=== PATIENT | female | born 1985 | race Caucasian/White ===

== ENCOUNTER 2016-03-14 11:13 | Outpatient (CLI) | payer OTHER | END 2016-03-14 11:14 | disposition home or self-care (01) | DX: Z36 Encounter for antenatal screening of mother (principal) ==

== ENCOUNTER 2016-05-02 10:30 | Outpatient (CLI) | payer OTHER | END 2016-05-02 10:31 | disposition home or self-care (01) | DX: Z13.29 Encounter for screening for other suspected endocrine disorder (principal); R06.00 Dyspnea, unspecified ==

== ENCOUNTER 2016-05-06 12:40 | Outpatient (CLI) | payer OTHER | END 2016-05-06 12:41 | disposition home or self-care (01) | DX: R00.2 Palpitations (principal); R06.00 Dyspnea, unspecified ==

== ENCOUNTER 2016-05-31 08:00 | Outpatient (CLI) | payer OTHER | END 2016-05-31 08:01 | disposition home or self-care (01) | DX: Z36 Encounter for antenatal screening of mother (principal) ==

== ENCOUNTER 2016-06-13 16:41 | Outpatient (CLI) | payer OTHER | END 2016-06-13 17:45 | disposition home or self-care (01) | DX: O10.913 Unspecified pre-existing hypertension complicating pregnancy, third trimester (principal); Z3A.38 38 weeks gestation of pregnancy ==

== ENCOUNTER 2016-06-15 10:08 | Outpatient (CLI) | payer OTHER | END 2016-06-15 12:25 | disposition home or self-care (01) | DX: O13.3 Gestational [pregnancy-induced] hypertension without significant proteinuria, third trimester (principal); Z3A.38 38 weeks gestation of pregnancy ==

== ENCOUNTER 2016-06-17 08:39 | Outpatient (CLI) | payer OTHER | END 2016-06-17 09:20 | disposition home or self-care (01) | DX: O13.3 Gestational [pregnancy-induced] hypertension without significant proteinuria, third trimester (principal); Z3A.39 39 weeks gestation of pregnancy ==

== ENCOUNTER 2016-06-20 14:30 | Outpatient (CLI) | payer OTHER | END 2016-06-20 14:31 | disposition home or self-care (01) | DX: Z30.2 Encounter for sterilization (principal); O34.219 Maternal care for unspecified type scar from previous cesarean delivery ==

== ENCOUNTER 2016-06-22 04:50 | Inpatient (IN) | payer OTHER ==
[~2016-06-22 04:50] MED LIST: SODIUM CHLORIDE FLUSH 0.9% 10 ML SYRINGE IVP ONE
[2016-06-22] MEDS ORDERED: LACTATED RINGERS 1,000 ML IV ONE ×4 (05:29→08:26)
[2016-06-22] MEDS ORDERED: ceFAZolin 2 GM/50 ML 50 ML IV SCH (05:45)
[2016-06-22] MEDS ORDERED: LACTATED RINGERS 1,500 ML IV SCH (06:00)
[2016-06-22] MEDS ORDERED: LACTATED RINGERS 1,000 ML IV SCH ×2 (06:00→09:00)
[2016-06-22] MEDS ORDERED: CITRIC ACID/SODIUM CITRATE 15 ML UDC PO SCH (06:00)
[2016-06-22] MEDS ORDERED: ONDANSETRON 4 MG/2 ML VIAL IVP PRN (06:34)
[2016-06-22] MEDS ORDERED: OXYTOCIN/LACTATED RINGERS 250 ML IV ONE ×3 (08:46→17:16)
[2016-06-22] MEDS ORDERED: NALBUPHINE 20 MG/ML AMP IVP PRN (14:00)
[2016-06-22] MEDS ORDERED: diphenhydrAMINE INJ 50 MG/ML VIAL IVP PRN (14:00)
[2016-06-22] MEDS ORDERED: METOCLOPRAMIDE 10 MG/2 ML VIAL IVP PRN (14:00)
[2016-06-22] MEDS ORDERED: MORPHINE 2 MG/ML SYRINGE IVP PRN (14:00)
[2016-06-22] MEDS ORDERED: diphenhydrAMINE 25 MG CAPSULE PO PRN (14:00)
[2016-06-22] MEDS ORDERED: SODIUM CHLORIDE FLUSH 0.9% 10 ML SYRINGE IVP ONE (14:04)
[2016-06-22] MEDS: IBUPROFEN 600 MG TABLET PO SCH ×2 (14:17→20:20)
[2016-06-22] MEDS: SIMETHICONE CHEW 80 MG TABLET PO SCH ×2 (14:17→22:27)
[2016-06-23] MEDS: IBUPROFEN 600 MG TABLET PO SCH ×5 (02:14→22:09)
[2016-06-23] MEDS: oxyCOD/ACETAMIN 5 MG/325 MG TABLET PO PRN ×5 (03:08→22:25)
[2016-06-23] MEDS: SIMETHICONE CHEW 80 MG TABLET PO SCH ×3 (06:01→22:08)
[2016-06-23] MEDS: DOCUSATE SODIUM 100 MG CAPSULE PO SCH (12:01)
[2016-06-23] MEDS ORDERED: FERROUS SULFATE 325 MG TABLET PO SCH (21:00)
[2016-06-24] MEDS: IBUPROFEN 600 MG TABLET PO SCH ×4 (04:35→21:16)
[2016-06-24] MEDS: oxyCOD/ACETAMIN 5 MG/325 MG TABLET PO PRN ×3 (04:36→19:48)
[2016-06-24] MEDS ORDERED: FERRIC GLUCONATE 125 MG in SODIUM CHLORIDE 0.9% 100ML 100 ML IV ONE (10:00)
[2016-06-24] MEDS: DOCUSATE SODIUM 100 MG CAPSULE PO SCH (12:49)
[2016-06-24] MEDS: SIMETHICONE CHEW 80 MG TABLET PO SCH ×3 (12:50→21:16)
[2016-06-24] MEDS: SODIUM CHLORIDE FLUSH 0.9% 10 ML SYRINGE IVP ONE ×2 (15:52→16:54)
[2016-06-25] MEDS ORDERED: SODIUM CHLORIDE FLUSH 0.9% 10 ML SYRINGE IVP ONE (02:25)
[2016-06-25] MEDS: IBUPROFEN 600 MG TABLET PO SCH ×2 (02:27→08:32)
[2016-06-25] MEDS: SIMETHICONE CHEW 80 MG TABLET PO SCH (05:47)
[2016-06-25] MEDS: DOCUSATE SODIUM 100 MG CAPSULE PO SCH (08:32)
== END 2016-06-25 13:40 | disposition home or self-care (01) | DRG 765 ==
PROC: 10D00Z1 Extraction of Products of Conception, Low, Open Approach (ICD-10-PCS; principal; 2016-06-22 07:30)
PROC: 0UB70ZZ Excision of Bilateral Fallopian Tubes, Open Approach (ICD-10-PCS; principal; 2016-06-22 07:30)
DX: O34.211 Maternal care for low transverse scar from previous cesarean delivery (principal); O13.3 Gestational [pregnancy-induced] hypertension without significant proteinuria, third trimester; N85.8 Other specified noninflammatory disorders of uterus; O90.81 Anemia of the puerperium; D64.9 Anemia, unspecified; O77.0 Labor and delivery complicated by meconium in amniotic fluid; Z37.0 Single live birth; Z3A.39 39 weeks gestation of pregnancy; Z30.2 Encounter for sterilization; Z90.5 Acquired absence of kidney

== ENCOUNTER 2016-09-09 14:53 | Emergency (ER) | payer OTHER ==
--- NOTE | 2016-09-09 15:52 | ED Physician Documentation ---
PD HPI ABD PAIN - Stated complaint Stated Complaint: VAG BLEEDING - Chief complaint Chief Complaint: Abd Pain - History obtained from History obtained from: Patient - History of Present Illness Timing - onset: Other (30-year-old woman who had tubal ligation after a couple of months ago. This is her second menses since then and it has been quite heavy with clots and heavy pad use for the last 6 days. 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 - Present Medications Home Medications: Ambulatory Orders Medication Instructions Recorded Confirmed Escitalopram Oxalate [Lexapro] 20 mg PO 09/25/12 09/25/12 Zolpidem Tartrate [Ambien] 5 mg PO 09/25/12 09/25/12 Ibuprofen [Motrin] 600 mg PO Q6H PRN #30 tab 06/25/16 oxyCODONE/ACET 5/325 [Percocet 5 2 each PO Q4-6H #20 tablet 06/25/16 mg/325 mg] Norgestrel-Ethinyl Estradiol 1 each PO TID #1 packet 09/09/16 [Low-Ogestrel] - Allergies Allergies/Adverse Reactions: Allergies Allergy/AdvReac Type Severity Reaction Status Date / Time No Known Drug Allergies Allergy Verified 06/15/16 11:30 - Social History Smoking Status: Never smoker PD ED PE NORMAL - Vitals Vital signs reviewed: Yes - General General: Alert and oriented X 3, No acute distress - Abdomen Abdomen: Soft, Non tender - Derm Derm: Normal color, Warm and dry - Extremities Extremities: No edema, No calf tenderness / cord - Neuro Neuro: Alert and oriented X 3 - Psych Psych: Normal mood, Normal affect Results - Vitals Vitals: Vital Signs - 24 hr 09/09/16 15:24 Temperature 36.5 C Heart Rate 77 Respiratory 17 Rate Blood Pressure 154/97 H O2 Saturation 100 Oxygen O2 Source Room air - Labs Labs: Laboratory Tests 09/09/16 09/09/16 09/09/16 16:00 16:15 16:15 WBC 8.3 RBC 4.46 Hgb 11.3 L Hct 36.3 L MCV 81.3 MCH 25.3 L MCHC 31.1 L RDW 16.4 H Plt Count 265 MPV 8.2 Neut # 5.2 Lymph # 2.3 [place] # 0.5 Eos # 0.2 Baso # 0.1 Absolute Nucleated RBC 0.00 Nucleated RBCs 0.0 Sodium 138 Potassium 3.9 Chloride 103 Carbon Dioxide 28 Anion Gap 7.0 BUN 19 Creatinine 0.8 Estimated GFR (MDRD) 85 L Glucose 88 Calcium 9.1 Ur Specific [place] 1.010 Urine HCG, Qual NEGATIVE PD MEDICAL DECISION MAKING - ED course ED course: Consulted Dr. Horner, on-call for Dr. Dumont who recommended control as written. Departure - Departure Disposition: Home, Self Care Clinical Impression: Menorrhagia Qualifiers: Menorrahagia type: with regular cycle Qualified Code(s): N92.0 - Excessive and frequent menstruation with regular cycle Condition: Good Record reviewed to determine appropriate education?: Yes Instructions: ED Bleed Irregular Vaginal Follow-Up: Angelo Dumont MD [Provider Admit Priv/Credential] - Within 1 week Prescriptions: Norgestrel-Ethinyl Estradiol [Low-Ogestrel] 1 each PO TID #1 packet Comments: Your blood pressure was elevated today on check into the emergency department. This does not mean that you have hypertension, it is a common phenomenon to come to the emergency department and have elevated blood pressure. I recommend that she see her primary care physician within the week to have it rechecked when you are feeling better.
[2016-09-09 16:30] LABS: BASOPHILS # (AUTO) 0.1 10^3/uL (0.0-0.1); BASOPHILS % (AUTO) 0.6 %; EOSINOPHILS # (AUTO) 0.2 10^3/uL (0.0-0.7); EOSINOPHILS % (AUTO) 2.6 %; HCT - HEMATOCRIT 36.3 % (37.0-47.0); HGB - HEMOGLOBIN 11.3 g/dL (12.0-16.0); LYMPHOCYTES # (AUTO) 2.3 10^3/uL (1.5-3.5); LYMPHOCYTES % (AUTO) 28.1 %; MEAN CORPUSCULAR HEMOGLOBIN 25.3 pg (27.0-31.0); MEAN CORPUSCULAR HGB CONC 31.1 g/dL (32.0-36.0); MEAN CORPUSCULAR VOLUME 81.3 fL (81.0-99.0); MEAN PLATELET VOLUME 8.2 fL (7.9-10.8); MONOCYTES # (AUTO) 0.5 10^3/uL (0.0-1.0); NEUTROPHILS # (AUTO) 5.2 10^3/uL (1.5-6.6); NEUTROPHILS % (AUTO) 62.7 %; RED BLOOD COUNT 4.46 10^6/uL (4.20-5.40); RED CELL DISTRIBUTION WIDTH 16.4 % (12.0-15.0); UNCORRECTED WHITE BLOOD COUNT 8.3 x10^3/uL; WHITE BLOOD COUNT 8.3 x10^3/uL (4.8-10.8)
[2016-09-09 16:39] LABS: CALCIUM 9.1 mg/dL (8.5-10.3); CREATININE 0.8 mg/dL (0.4-1.0); POTASSIUM 3.9 mmol/L (3.5-5.0)
[2016-09-09 16:56] LABS: HCG UR QUAL NEGATIVE
[2016-09-09 17:28] VITALS: BP 128/93
== END 2016-09-09 17:33 | disposition home or self-care (01) ==
LOC: ED 14:53
DX: N92.0 Excessive and frequent menstruation with regular cycle (principal); R03.0 Elevated blood-pressure reading, without diagnosis of hypertension
CPT/HCPCS: 36415; 80048; 81025; 85025; 86850; 86900; 86901; 99283

== ENCOUNTER 2017-04-25 09:41 | Day surgery (SDC) | payer OTHER ==
[2017-04-25] MEDS ORDERED: SODIUM CHLORIDE 0.9% 1,000 ML IV ONE (10:07)
[2017-04-25] MEDS ORDERED: ACETAMINOPHEN 1,000 MG/100 ML 100 ML IV STA ×2 (10:07→17:43)
--- NOTE | 2017-04-25 10:13 | ED Physician Documentation ---
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 - Present Medications Home Medications: Ambulatory Orders Medication Instructions Recorded Confirmed Melatonin 5 mg PO QPM PRN 04/25/17 04/25/17 Multivitamin [Theragran] 1 tab PO DAILY 04/25/17 04/25/17 Zolpidem Tartrate [Ambien] 10 mg PO QPM PRN 04/25/17 04/25/17 - Allergies Allergies/Adverse Reactions: Allergies Allergy/AdvReac Type Severity Reaction Status Date / Time No Known Drug Allergies Allergy Verified 04/25/17 09:48 - Social History Smoking Status: Never smoker PD ED PE NORMAL - Vitals Vital signs reviewed: Yes - Neck Neck: Supple, no meningeal sign - Cardiac Cardiac: RRR - Respiratory Respiratory: No respiratory distress, Clear bilaterally - Abdomen Abdomen: Soft, Other (TTP RUQ and RLQ both s peritoneal signs) - Derm Derm: Normal color - Extremities Extremities: No deformity - Neuro Neuro: Alert and oriented X 3 Results - Vitals Vitals: Vital Signs - 24 hr 04/25/17 04/25/17 04/25/17 09:44 12:26 15:13 Temperature 36.9 C Heart Rate 103 H 101 H 98 Respiratory 16 16 12 Rate Blood Pressure 148/91 H 127/79 125/84 H O2 Saturation 100 99 100 Oxygen O2 Source Room air - Labs Labs: Laboratory Tests 04/25/17 04/25/17 04/25/17 10:00 10:00 13:00 WBC 15.5 H RBC 4.66 Hgb 11.4 L Hct 35.7 L MCV 76.5 L MCH 24.4 L MCHC 31.9 L RDW 15.8 H Plt Count 278 MPV 9.1 Neut # 12.1 H Lymph # 2.3 [place] # 0.7 Eos # 0.3 Baso # 0.1 Absolute Nucleated RBC 0.00 Nucleated RBC % 0.0 Sodium 136 Potassium 3.4 L Chloride 102 Carbon Dioxide 22 Anion Gap 12.0 BUN 14 Creatinine 0.8 Estimated GFR (MDRD) 85 L Glucose 87 Calcium 9.2 Total Bilirubin 0.4 AST 27 ALT 20 Alkaline Phosphatase 49 Total Protein 7.8 Albumin 4.2 Globulin 3.6 Albumin/Globulin Ratio 1.2 Lipase 19 L Urine Color YELLOW Urine Clarity CLEAR Urine pH 6.0 Ur Specific [place] 1.015 Urine Protein NEGATIVE Urine Glucose (UA) NEGATIVE Urine Ketones 40 H Urine Occult Blood NEGATIVE Urine Nitrite NEGATIVE Urine Bilirubin NEGATIVE Urine Urobilinogen 0.2 (NORMAL) Ur Leukocyte Esterase NEGATIVE Ur Microscopic Review NOT INDICATED Urine Culture Comments NOT INDICATED Urine HCG, Qual 04/25/17 13:00 WBC RBC Hgb Hct MCV MCH MCHC RDW Plt Count MPV Neut # Lymph # [place] # Eos # Baso # Absolute Nucleated RBC Nucleated RBC % Sodium Potassium Chloride Carbon Dioxide Anion Gap BUN Creatinine Estimated GFR (MDRD) Glucose Calcium Total Bilirubin AST ALT Alkaline Phosphatase Total Protein Albumin Globulin Albumin/Globulin Ratio Lipase Urine Color Urine Clarity Urine pH Ur Specific [place] 1.015 Urine Protein Urine Glucose (UA) Urine Ketones Urine Occult Blood Urine Nitrite Urine Bilirubin Urine Urobilinogen Ur Leukocyte Esterase Ur Microscopic Review Urine Culture Comments Urine HCG, Qual NEGATIVE - Rads (name of study) abd sono Radiology: See rad report (nl GB, non vis appendix but no secondary signs of appendicitis) pelvic sono Radiology: See rad report (normal no torsion) CT AP Radiology: See rad report (early appendicitis, diverticulosis) PD MEDICAL DECISION MAKING - ED course ED course: started with sono hoping to avoid radiation of CT GB kidney ovary all fine but elev WBC and appy not seen on sono and on serial exams show pain localized to rlq - still no rebound or guarding +/- rovsing will need CT CT does show acute appy spoke with surgeon Dr Charlton at 540PM jim bruno Departure - Departure Disposition: ED Transfer to [facility] Clinical Impression: Appendicitis Qualifiers: Appendicitis type: acute appendicitis Acute appendicitis type: with localized peritonitis Qualified Code(s): K35.3 - Acute appendicitis with localized peritonitis Condition: Good
[2017-04-25 10:27] LABS: BASOPHILS # (AUTO) 0.1 10^3/uL (0.0-0.1); BASOPHILS % (AUTO) 0.6 %; EOSINOPHILS # (AUTO) 0.3 10^3/uL (0.0-0.7); HGB - HEMOGLOBIN 11.4 g/dL (12.0-16.0); LYMPHOCYTES # (AUTO) 2.3 10^3/uL (1.5-3.5); MEAN CORPUSCULAR HEMOGLOBIN 24.4 pg (27.0-31.0); MEAN CORPUSCULAR HGB CONC 31.9 g/dL (32.0-36.0); MEAN CORPUSCULAR VOLUME 76.5 fL (81.0-99.0); MEAN PLATELET VOLUME 9.1 fL (7.9-10.8); MONOCYTES # (AUTO) 0.7 10^3/uL (0.0-1.0); MONOCYTES % (AUTO) 4.5 %; NEUTROPHILS # (AUTO) 12.1 10^3/uL (1.5-6.6); NEUTROPHILS % (AUTO) 77.9 %; PLT - PLATELET COUNT 278 10^3/uL (130-450); RED BLOOD COUNT 4.66 10^6/uL (4.20-5.40); RED CELL DISTRIBUTION WIDTH 15.8 % (12.0-15.0); WHITE BLOOD COUNT 15.5 x10^3/uL (4.8-10.8)
[2017-04-25 10:42] LABS: ALBUMIN 4.2 g/dL (3.2-5.5); ALBUMIN/GLOBULIN RATIO 1.2 (1.0-2.2); BILIRUBIN,TOTAL 0.4 mg/dL (0.2-1.0); CALCIUM 9.2 mg/dL (8.5-10.3); CREATININE 0.8 mg/dL (0.4-1.0); TOTAL PROTEIN 7.8 g/dL (6.7-8.2)
[2017-04-25 13:10] LABS: BILIRUBIN,URINE NEGATIVE (NEGATIVE); GLUCOSE, URINE (UA) NEGATIVE (NEGATIVE); KETONES,URINE (UA) 40 mg/dL (NEGATIVE); LEUKOCYTE ESTERASE, URINE NEGATIVE (NEGATIVE); NITRITE,URINE NEGATIVE (NEGATIVE); OCCULT BLOOD,URINE NEGATIVE (NEGATIVE); PROTEIN,URINE NEGATIVE (NEGATIVE); UROBILINOGEN,URINE 0.2 (NORMAL) E.U./dL (NORMAL)
[2017-04-25 13:11] LABS: CLARITY,URINE CLEAR (CLEAR)
[2017-04-25 13:13] LABS: HCG UR QUAL NEGATIVE
[2017-04-25] MEDS ORDERED: IOPAMIDOL-300 50 ML VIAL ONE (15:09)
[2017-04-25] MEDS ORDERED: IOPAMIDOL-300 50 ML VIAL PO ONE (15:39)
--- NOTE | 2017-04-25 16:51 | Ultrasound Report ---
RIGHT UPPER QUADRANT ULTRASOUND: 04/25/2017 CLINICAL INDICATION: Right-sided pain. TECHNIQUE: Real-time scanning was performed with sales representative printing paper static images obtained. FINDINGS: Ultrasound of the right upper and lower quadrants was performed. The liver measures 15.5 cm. Hepatic echogenicity is normal. No intrahepatic biliary dilatation or focal parenchymal lesion is present. The common bile duct measures 6 mm. The gallbladder is normal. The right kidney measures 12.8 cm, and demonstrates no hydronephrosis. Scanning of the right lower quadrant does not demonstrate the appendix. No abnormal fluid collection is seen. IMPRESSION: NORMAL RIGHT UPPER QUADRANT ULTRASOUND. NONVISUALIZATION OF THE APPENDIX, BUT NO SECONDARY FINDINGS OF ACUTE APPENDICITIS. TD: 04/25/2017 16:50
--- NOTE | 2017-04-25 16:55 | CT Preliminary Report ---
Exam: CT ABDOMEN/PELVIS W/O IMPRESSION: 1. Abnormal appendix consistent with early appendicitis. 2. Colonic diverticulosis. 3. No nephrolithiasis nor obstructive uropathy. [facility] SITE ID: [id number]
--- NOTE | 2017-04-25 17:07 | Ultrasound Report ---
REVISED: THIS REPORT WAS ORIGINALLY SIGNED ON 04/26/2017 @ 0804 . ORDERS LINKED ON 05/02/2017. PELVIC ULTRASOUND: 04/25/2017 CLINICAL INDICATION: Right-sided pain. COMPARISON: 03/12/2015 TECHNIQUE: Transabdominal pelvic ultrasound performed for global evaluation. Transvaginal pelvic ultrasound performed for detailed evaluation. Real-time scanning performed and static images obtained with Doppler. FINDINGS: The uterus is anteverted, measuring 9.2 x 5.6 x 3.9 cm. The endometrium measures 15 mm. The ovaries are unremarkable, with the right measuring 2.6 x 1.6 x 1.2 cm, and the left measuring 3.2 x 2.4 x 1.9 cm. Both ovaries demonstrate normal flow. Trace free fluid is present in the cul-de-sac , likely physiologic in a patient of this age. IMPRESSION: NO EVIDENCE OF OVARIAN TORSION. TD: 04/25/2017 17:06 MTDD
--- NOTE | 2017-04-25 17:27 | CT Report ---
EXAM: CT ABDOMEN AND PELVIS WITHOUT CONTRAST EXAM DATE: 04/25/2017 04:23 p.m. CLINICAL HISTORY: Right flank and right lower quadrant pain since 5:00 a.m. today. COMPARISONS: 06/29/2009. Abdominal and pelvic ultrasound earlier today. TECHNIQUE: Routine helical CT imaging was performed through the abdomen and pelvis. IV contrast: None . Enteric contrast: Oral contrast. Reconstructions: Coronal and sagittal. In accordance with CT protocol optimization, one or more of the following dose reduction techniques w ere utilized for this exam: automated exposure control, adjustment of mA and/or KV based on patient s ize, or use of iterative reconstructive technique. FINDINGS: Lung Bases: Unremarkable. Liver: Normal. No masses. Gallbladder/Bile Ducts: Unremarkable. Spleen: Normal. Pancreas: Normal. Adrenal Glands: Normal. Kidneys: Tiny surgical clip or dystrophic calcification unchanged adjacent to the inferior pole left kidney without inflammatory changes, incidental finding. Both kidneys and ureters otherwise unremarkable. Peritoneal Cavity/Bowel: Diverticula off the colon. Several shotty lymph nodes right lower quadrant m esentery adjacent to the appendix. Oral contrast extends to the mid small bowel. Large and small bowel normal caliber. No free air. Appendix is borderline enlarged, 9 mm with a slightly thickened wall and a small amount of adjacent e bong. No extraluminal air nor abscess. Pelvic Organs: Tiny amount of cul-de-sac fluid. The bladder and visualized pelvic organs are within n ormal limits. Vasculature: No aneurysms or other significant abnormality. Bones: No significant abnormality. Other: None. IMPRESSION: 1. Abnormal appendix consistent with early appendicitis. 2. Colonic diverticulosis. 3. No nephrolithiasis nor obstructive uropathy. [facility] Referring Provider Line: [phone] SITE ID: [id number]
[2017-04-25] MEDS ORDERED: PIPERACILLIN/TAZOBACTAM 3.375 GM in SODIUM CHLORIDE 0.9% MINIBAG 100 ML IV STA (17:42)
[2017-04-25] MEDS ORDERED: PIPERACILLIN/TAZOBACTAM 3.375 GM in SODIUM CHLORIDE 0.9% MINIBAG 100 ML IV SCH (18:00)
--- NOTE | 2017-04-25 19:47 | CONSULTATION NOTE ---
Referring Provider Name of Referring Provider:: Estefani Redman Consult Date: 04/25/17 Chief Complaint - Chief Complaint Chief Complaint: Epigastric pain localizing to the right lower quadrant accompanied by eleva History of Present Illness - Admitted From Admitted From:: Emergency department - History Obtained From Records Reviewed: Yes History obtained from: Patient Exam Limitations: None - History of Present Illness HPI Comment/Other: This very pleasant 31-year-old female was evaluated in bed for at [facility]'s emergency department at the request of Dr. Estefani Mendoza. 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 On the way home the pain was epigastric and she thought by eating it would help. It did not. She tried going to sleep without success. When the pain localized to the right lower quadrant she figured it might be appendicitis and came into the emergency department. She was seen in our emergency department at 09 30 this morning. She has not had anything to eat since that time. The pain is described as fairly steady and sharp and worsened by moving. She has not had any significant nausea or vomiting with it. In fact she is quite hungry. History - Past Medical History Cardiovascular: reports: None Respiratory: reports: None Neuro: reports: None Endocrine/Autoimmune: reports: None GI: reports: None BAG SEWER: reports: Other ( section 2 as well as tubal ligation) : reports: None HEENT: reports: None Psych: reports: None, Panic attacks (History of panic attack with 1 of her sections.) Musculoskeletal: reports: Other (Both knees operated on for ACL reconstructions. Patient played ultimate Frisbee.) Derm: reports: None MRSA Hx?: No - Past Surgical History Ortho: reports: ACL reconstruction (Both knees.) /BAG SEWER: reports: section, Other (Tubal ligation.) Meds/Allgy - Home Medications Home Medications: Ambulatory Orders Medication Instructions Recorded Confirmed Melatonin 5 mg PO QPM PRN 04/25/17 04/25/17 Multivitamin [Theragran] 1 tab PO DAILY 04/25/17 04/25/17 Zolpidem Tartrate [Ambien] 10 mg PO QPM PRN 04/25/17 04/25/17 - Allergies Allergies/Adverse Reactions: Allergies Allergy/AdvReac Type Severity Reaction Status Date / Time No Known Drug Allergies Allergy Verified 04/25/17 09:48 Review of Systems - Constitutional Constitutional: reports: Fatigue (While working 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 as an 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 nurse.) - Cardiovascular Cariovascular: denies: Irregular heart rate, Palpitations, Chest pain - Respiratory Respiratory: denies: Cough, Sputum production, Wheezing - Gastrointestinal Gastrointestinal: reports: Other (See above.) - Integumentary Integumentary: denies: Rash - Neurological Neurological: denies: General weakness, Focal weakness Exam - Vital Signs Reviewed Vital Signs: Yes Vital Signs: Vital Signs x48h Pulse Resp BP Pulse Ox 04/25/17 19:14 81 18 125/74 98 04/25/17 15:13 98 12 125/84 H 100 04/25/17 12:26 101 H 16 127/79 99 - Physical Exam General Appearance: positive: No acute distress Eyes Bilateral: positive: No lid inflammation, Conjunctivae nml, No scleral icterus Neck: positive: Trachea midline Respiratory: positive: Chest non-tender, No respiratory distress, Breath sounds nml Cardiovascular: positive: Regular rate & rhythm Abdomen: positive: Tenderness (In right lower quadrant with deep palpation at McBurney's point. No significant peritoneal findings. Positive bowel sounds but slightly decreased.) Skin: positive: Color nml Extremities: positive: Nml appearance Neurologic/Psychiatric: positive: Oriented x3 Conclusion/Plan - Diagnosis Diagnosis: Acute appendicitis. - Plan Plan: Laparoscopic appendectomy, possible open appendectomy. The indications, procedure, alternatives including no surgery, possible risks including infection (deep or superficial), bleeding requiring transfusion (with all of its risks), and were fully explained to the patient and all questions answered. I also explained the pathophysiology. I explained that following the surgery I did not want her lifting anything over 15 pounds for 6 weeks to allow for optimal healing and to decrease the likelihood that a hernia would occur. All questions were fully answered. Verbal and written consent was obtained. The patient, in preparation for surgery will be nothing by mouth, and receive 3.375 g of Zosyn with induction. I asked her to contact me with any surgical questions and her concerns and she stated that she would. I asked her to let me know if there is any way we can make her stay at [facility] more comfortable and she stated that she would let me know. The plan is to do this operation as an outpatient procedure and to discharge her home following the procedure. 45 minutes of [id number] time spent with the patient, over 80% in discussion and coordination of her care. This is also the patient's wish. - Lab Results Fish Bones: 04/25/17 10:00 04/25/17 10:00 - Diagnostic Imaging Results Diagnostic Imaging Results: positive: Prelim report reviewed, Final report reviewed, Read independently
[2017-04-25] MEDS ORDERED: DEXAMETHASONE 4 MG/ML VIAL IVP ONE (20:09)
[2017-04-25] MEDS ORDERED: MIDAZOLAM 2 MG/2 ML VIAL IVP ONE (20:09)
[2017-04-25] MEDS ORDERED: fentaNYL 100 MCG/2 ML VIAL IVP ONE (20:09)
[2017-04-25] MEDS ORDERED: GLYCOPYRROLATE 1 MG/5 ML VIAL IVP ONE (20:09)
[2017-04-25] MEDS ORDERED: ROCURONIUM 50 MG/5 ML VIAL IVP ONE (20:09)
[2017-04-25] MEDS ORDERED: LACTATED RINGERS 1,000 ML IV ONE (20:09)
[2017-04-25] MEDS ORDERED: LIDOCAINE-MPF 2% 5 ML VIAL IM ONE (20:09)
[2017-04-25] MEDS ORDERED: ONDANSETRON 4 MG/2 ML VIAL IVP ONE (20:09)
[2017-04-25] MEDS ORDERED: KETOROLAC 30 MG/ML VIAL IVP ONE (20:09)
[2017-04-25] MEDS ORDERED: PROPOFOL 200 MG/20 ML VIAL IVP ONE (20:09)
[2017-04-25] MEDS ORDERED: NEOSTIGMINE 1 MG/1 ML 10 ML MDV IVP ONE (20:09)
[2017-04-25] MEDS ORDERED: BUPIVACAINE 0.5% PF 30 ML VIAL SUBQ ONE (20:34)
--- NOTE | 2017-04-25 21:19 | OPERATIVE REPORT ---
Operative Report - General Procedure Date: 04/25/17 Planned Procedure: Laparoscopic appendectomy Pre-Op Diagnosis: Acute appendicitis Procedure Performed: Laparoscopic appendectomy Post Op Diagnosis: Acute non-perforated appendicits - Procedure Note Primary Surgeon: Lavelle Charlton MD Anesthesia Provider: Constance Wilson CRNA Anesthesia Technique: General ET tube IV Fluids (mL): 400 Estimated Blood Loss (mL): 5 Drain/Tube Type: Other (None.) Complications: None. - Other Other Information/Narrative: OPERATIVE DESCRIPTION/REPORT: After verbal and written informed consent was obtained detailing the risks of infection, bleeding requiring transfusion with its risks, and , and after I met with the patient confirming the surgery and the site of the surgery, the patient was brought to the operative suite and placed supine on the operating table. Great care was taken to avoid pressure points to prevent pressure necrosis or nerve injury. Monitoring devices were applied along with TEDs and pneumatic compressive stockings (to prevent DVT). The patient received preoperative antibiotics for surgical prophylaxis. Roseanne Wilson sedated and anesthetized the patient for the entire procedure. The patient was prepped and draped in the usual sterile manner. With the patient draped my initials were clearly visible. A "time in" then confirmed that the patient was identified with 3 identifiers (name, birthdate and medical record number), the history and physical was in the chart, the signed consent confirming the procedure was in the chart, the patient was in the correct position, the aforementioned prophylactic measures were in place or given, we had the correct personnel and equipment to complete the procedure and that anesthesia, surgery and nursing were given an opportunuty to express any concerns. With the agreement of everyone in the room, we proceeded with the operation. A 2 cm umbilical midline incision was made. The fascia was then cleared of subcutaneous tissue using a tonsil clamp. A 2 cm incision was then made in the fascia gaining entry into the abdominal cavity without incident. A 12 mm blunt tipped balloon tipped Imelda port was placed into the abdomen and the balloon inflated to keep it in place. The pneumoperitoneum was then established using carbon dioxide insufflation to a steady state pressure of 15 mmHg. Two additional 5 mm ports were placed in the midline above and below the umbilicus. The patient was then rotated slightly to their left and slightly head down ( Trendelenberg). The appendix was clearly identified and noted to be thickened and clearly consistent with acute appendicitis. It was a simple matter to grasp the end of the appendix and lift it revealing the base of the appendix where it was draining into the cecum. The mesoappendix was taken using serial application of the Ligasure. The base of the appendix and mesentery were then stapled and transected using a laparoscopic vascular stapler. Visualization of the staple line revealed absolutely no bleeding or leak of bowel contents. The appendix was then place into an endopouch for the remainder of the case. Photographs were taken. The patient was then rotated to lie flat. The fascia and skin were then injected with the 30 cc of % marcaine for pain control. The insufflation was released and the ports removed. The fascial defect was then approximated using 0-Vicryl suture in a simple interrupted manner taking care to bury the knots. The skin incisions were approximated with 4-0 Monocryl in a subcuticular fashion. The surgical prep was removed, the skin was prepped with benzoin and steristrips were applied. A dressing was applied. At this point a time out was performed that confirmed that all the counts were correct, the procedure that was performed, the blood loss, the urine output, the IV fluids administered, and the patients condition. Having tolerated the procedure well, the patient was subsequently extubated and taken to recovery room in good and stable condition. [employer] disclaimer: This document was created in part using voice recognition technology. Because of the inherent limitations of the system ([employer]'s [employer] user manual states that the licensee understands that speech recognition is a statistical process and that recognition errors are inherent in the process), occasional same sounding word substitutions and grammatical errors do occur and persist despite proofreading. Please read this document for context.
[2017-04-25] MEDS ORDERED: ONDANSETRON 4 MG/2 ML VIAL ONE (21:26)
[2017-04-25] MEDS ORDERED: oxyCODONE/ACET 5/325 Prepack 4 PO STA (21:26)
[2017-04-25] MEDS ORDERED: SCOPOLAMINE PATCH TOP ONE (21:51)
[2017-04-25] MEDS ORDERED: oxyCOD/ACETAMIN 5 MG/325 MG TABLET PO ONE (22:26)
[2017-04-25 22:56] VITALS: BP 132/74
== END 2017-04-25 18:39 | disposition home or self-care (01) ==
LOC: ED 09:41 → SDS 18:38
PROVIDERS: ATTEND Surgery
PROC: 0DTJ4ZZ Resection of Appendix, Percutaneous Endoscopic Approach (ICD-10-PCS; principal; 2017-04-25 20:00)
DX: K35.80 Unspecified acute appendicitis (principal); E78.5 Hyperlipidemia, unspecified; J45.990 Exercise induced bronchospasm
CPT/HCPCS: 36415; 44970; 74176; 76705; 76830; 76856; 80053; 81003; 81025; 83690; 85025; 93976; 96365; 96375; 96376; 99284; A9270; J0131; J3490; J7120; Q9967; 81001; 87086

== ENCOUNTER 2018-02-20 09:24 | Outpatient (CLI) | payer OTHER ==
[2018-02-20 15:05] LABS: ALBUMIN 3.7 g/dL (3.2-5.5); ALBUMIN/GLOBULIN RATIO 1.1 (1.0-2.2); ALKALINE PHOSPHATASE 56 IU/L (42-121); ALT ALANINE AMINOTRANSFERASE 20 IU/L (10-60); AST ASPARTATE AMINOTRANSFERASE 24 IU/L (10-42); BILIRUBIN,TOTAL 0.5 mg/dL (0.2-1.0); BUN - BLOOD UREA NITROGEN 10 mg/dL (6-20); CALCIUM 8.6 mg/dL (8.5-10.3); CARBON DIOXIDE - CO2 25 mmol/L (21-32); CHLORIDE 104 mmol/L (101-111); CHOL/HDL RATIO 3.1 (<4.4); CHOLESTEROL 166 mg/dL; CREATININE 0.9 mg/dL (0.4-1.0); GFR - MDRD 74 (>89); GLUCOSE 102 mg/dL (70-100); HDL CHOLESTEROL 53 mg/dL; LDL CHOLESTEROL,CALCULATED 99 mg/dL; LDL/HDL RATIO 1.9 (<4.4); SODIUM 136 mmol/L (135-145); TOTAL PROTEIN 7.2 g/dL (6.7-8.2); VLDL CHOLESTEROL 14 mg/dL
== END 2018-02-20 23:59 | disposition home or self-care (01) ==
LOC: LAB.WCP 09:24
PROVIDERS: ATTEND Family Medicine
DX: I10 Essential (primary) hypertension (principal); E78.5 Hyperlipidemia, unspecified
CPT/HCPCS: 36415; 80053; 80061; 81599; 82088; 82530; 83721; 83835; 84244

== ENCOUNTER 2018-03-26 15:03 | Outpatient (CLI) | payer OTHER ==
[2018-03-26 16:14] LABS: BASOPHILS # (AUTO) 0.1 10^3/uL (0.0-0.1); BASOPHILS % (AUTO) 0.9 %; EOSINOPHILS # (AUTO) 0.2 10^3/uL (0.0-0.7); EOSINOPHILS % (AUTO) 2.5 %; HGB - HEMOGLOBIN 12.9 g/dL (12.0-16.0); LYMPHOCYTES # (AUTO) 1.7 10^3/uL (1.5-3.5); LYMPHOCYTES % (AUTO) 21.4 %; MEAN CORPUSCULAR HEMOGLOBIN 27.1 pg (27.0-31.0); MEAN CORPUSCULAR HGB CONC 31.8 g/dL (32.0-36.0); MEAN CORPUSCULAR VOLUME 85.4 fL (81.0-99.0); MEAN PLATELET VOLUME 8.1 fL (7.9-10.8); MONOCYTES # (AUTO) 0.5 10^3/uL (0.0-1.0); MONOCYTES % (AUTO) 5.8 %; NEUTROPHILS # (AUTO) 5.4 10^3/uL (1.5-6.6); NEUTROPHILS % (AUTO) 69.4 %; PLT - PLATELET COUNT 247 10^3/uL (130-450); RED BLOOD COUNT 4.74 10^6/uL (4.20-5.40); RED CELL DISTRIBUTION WIDTH 15.6 % (12.0-15.0); WHITE BLOOD COUNT 7.8 x10^3/uL (4.8-10.8)
[2018-03-26 16:50] LABS: HB2 TOTAL 14.1 g/dL; HEMOGLOBIN A1C 0.49 g/dL; HEMOGLOBIN A1C % 5.3 % (4.6-6.2)
[2018-03-26 17:07] LABS: THYROID STIMULATING HORMONE 1.2 uIU/mL (0.34-5.60)
[2018-03-26 17:12] LABS: FREE T4 (FREE THYROXINE) 0.84 ng/dL (0.58-1.64)
[2018-03-26 17:35] LABS: FOLLICLE STIMULATING HORMONE 9.54 mIU/mL
[2018-03-26 17:36] LABS: LUTEINIZING HORMONE 3.06 mIU/mL
--- NOTE | 2018-03-27 15:21 | Ultrasound Report ---
Reason: MENSTRUAL BLEEDING,ABNORMAL Procedure Date: 03/26/2018 Accession Number: [id number] / [id number] Procedure: US - Pelvic w/Transvaginal CPT Code: FULL RESULT: EXAM: PELVIC ULTRASOUND EXAM DATE: 03/26/2018 03:17 PM. CLINICAL HISTORY: Frequent menses with spotting between cycles COMPARISON: None. TECHNIQUE: Realtime transabdominal pelvic scan performed to identify the uterus and adnexa and as an overview of other pelvic structures, followed by transvaginal scan to provide greater detail of the uterus and adnexa, with static image documentation. FINDINGS: Uterus: 8.3 x 4 x 5.6 cm, volume 97 cc. Anteverted position. Normal overall size and mildly heterogeneous in echotexture. Masses: None. Endometrium: 11.4 mm. Border is slightly ill-defined, adenomyosis not excluded by this study Cervix: Unremarkable. Right Ovary: 2.8 x 1.5 x 1.6 cm, volume 3.5 cc. Normal echotexture and blood flow. Left Ovary: 2 x 1.5 x 1.2 cm, volume 1.8 cc. Normal echotexture and blood flow. Free Fluid: None. Other: None. IMPRESSION: Slightly heterogeneous uterine echotexture without discrete fibroids. Normal endometrial echo thickness with indistinctness of the margins. If adenomyosis could explain the patient's clinical symptoms, MRI may be useful. Otherwise negative pelvic ultrasound [facility]
== END 2018-03-26 15:04 | disposition home or self-care (01) ==
LOC: DI 15:03
PROVIDERS: ATTEND Obstetrics & Gynecology
DX: N92.6 Irregular menstruation, unspecified (principal); N93.9 Abnormal uterine and vaginal bleeding, unspecified
CPT/HCPCS: 36415; 76830; 76856; 80061; 82947; 83001; 83002; 83036; 83721; 84403; 84439; 84443; 85025

== ENCOUNTER 2018-04-17 13:26 | Outpatient (CLI) | payer OTHER | END 2018-04-17 13:27 | disposition home or self-care (01) | LOC: SC 13:26 | PROVIDERS: ATTEND Internal Medicine Pulmonary Disease | DX: G47.10 Hypersomnia, unspecified (principal); R41.89 Other symptoms and signs involving cognitive functions and awareness; R06.83 Snoring; G47.8 Other sleep disorders | CPT/HCPCS: 99203; 99212 ==

== ENCOUNTER 2018-04-18 16:54 | Outpatient (CLI) | payer OTHER | END 2018-04-18 16:55 | disposition home or self-care (01) | LOC: SC 16:54 | PROVIDERS: ATTEND Internal Medicine Pulmonary Disease | DX: G47.33 Obstructive sleep apnea (adult) (pediatric) (principal) | CPT/HCPCS: 95810 ==

== ENCOUNTER 2018-05-03 10:38 | Outpatient (CLI) | payer OTHER | END 2018-05-03 10:39 | disposition home or self-care (01) | LOC: SC 10:38 | PROVIDERS: ATTEND Nurse Practitioner Family | DX: G47.33 Obstructive sleep apnea (adult) (pediatric) (principal) | CPT/HCPCS: 99212; 99214 ==

== ENCOUNTER 2018-05-28 10:58 | Outpatient (CLI) | payer OTHER ==
[2018-05-28 11:20] LABS: BASOPHILS # (AUTO) 0.1 10^3/uL (0.0-0.1); BASOPHILS % (AUTO) 1.1 %; EOSINOPHILS # (AUTO) 0.2 10^3/uL (0.0-0.7); EOSINOPHILS % (AUTO) 2.6 %; HGB - HEMOGLOBIN 11.8 g/dL (12.0-16.0); LYMPHOCYTES # (AUTO) 2.1 10^3/uL (1.5-3.5); MEAN CORPUSCULAR HEMOGLOBIN 28.1 pg (27.0-31.0); MEAN CORPUSCULAR HGB CONC 33.2 g/dL (32.0-36.0); MEAN CORPUSCULAR VOLUME 84.6 fL (81.0-99.0); MONOCYTES # (AUTO) 0.5 10^3/uL (0.0-1.0); MONOCYTES % (AUTO) 6.5 %; NEUTROPHILS # (AUTO) 4.6 10^3/uL (1.5-6.6); NEUTROPHILS % (AUTO) 61.8 %; PLT - PLATELET COUNT 263 10^3/uL (130-450); RED BLOOD COUNT 4.22 10^6/uL (4.20-5.40); RED CELL DISTRIBUTION WIDTH 15.7 % (12.0-15.0); WHITE BLOOD COUNT 7.5 x10^3/uL (4.8-10.8)
[2018-05-28 11:42] LABS: HCG UR QUAL NEGATIVE
== END 2018-05-28 10:59 | disposition home or self-care (01) ==
LOC: LAB 10:58
PROVIDERS: ATTEND Obstetrics & Gynecology
DX: Z01.818 Encounter for other preprocedural examination (principal); N93.9 Abnormal uterine and vaginal bleeding, unspecified
CPT/HCPCS: 36415; 81025; 85025; 86850; 86900; 86901

== ENCOUNTER 2018-05-30 09:33 | Day surgery (SDC) | payer OTHER ==
[2018-05-30 09:55] LABS: HCG UR QUAL NEGATIVE
--- NOTE | 2018-05-30 10:00 | ANESTHESIA ---
Pre-Anesthesia VS, & Labs - Diagnosis heavy menstral bleeding - Procedure myosure ablation, dilatation and curettage Height 5 ft 3 in Weight (kg) 100.1 kg Body Mass Index 38.0 - NPO >8 hours - Is Patient ?: No Home Medications and Allergies Home Medications: Ambulatory Orders Acetaminophen/Diphenhydramine [Tylenol Pm Ex-Strength Caplet] 1 each PO QPM PRN 05/17/18 hydroCHLOROthiazide [Hydrochlorothiazide] 25 mg PO DAILY 05/17/18 Melatonin 5 mg PO QPM PRN 04/25/17 Multivitamin [Theragran] 1 tab PO DAILY 04/25/17 Zolpidem Tartrate [Ambien] 10 mg PO QPM PRN 04/25/17 Acetaminophen/Diphenhydramine [Tylenol Pm Ex-Strength Caplet] 1 each PO QPM PRN 05/17/18 hydroCHLOROthiazide [Hydrochlorothiazide] 25 mg PO DAILY 05/17/18 Allergies/Adverse Reactions: Allergies Allergy/AdvReac Type Severity Reaction Status Date / Time No Known Drug Allergies Allergy Verified 04/25/17 09:48 Anes History & Medical History - Medical History Cardiovascular: reports: None Pulmonary: reports: None Gastrointestinal: reports: None Urinary: reports: None Musculoskeletal: reports: Other Endocrine/Autoimmune: reports: None Skin: reports: None Smoking Status: Never smoker - Surgical History General: Appendectomy Urologic: Nephrectomy Gynecologic: section, Other Orthopedic: ACL reconstruction Exam General: Alert Dental: WNL Mouth Opening: Greater than 4 Fingerbreadths Mallampati classification: II Thyromental Distance: greater than 6 cm Respiratory: Lungs clear Cardiovascular: Regular rate, Normal S1, Normal S2 Mental/Cognitive Status: Alert/Oriented X3 Plan Anesthesia Type: General Consent for Procedure(s) Verified and Reviewed: Yes Code Status: Attempt Resuscitation ASA classification: 2-Mild systemic disease Is this case an emergency?: No
[2018-05-30] MEDS ORDERED: LACTATED RINGERS 1,000 ML IV ONE ×2 (10:03→11:48)
[2018-05-30] MEDS ORDERED: BUPIVACAINE 0.25%-EPI 1:200000 PF 30 ML VIAL SUBQ ONE (11:06)
[2018-05-30] MEDS ORDERED: BUPIVACAINE 0.25%-EPI 1:200000 PF 30 ML VIAL ONE (11:09)
[2018-05-30] MEDS ORDERED: ACETAMINOPHEN 1,000 MG/100 ML 100 ML IV ONE (12:00)
[2018-05-30] MEDS ORDERED: DEXAMETHASONE 4 MG/ML VIAL IVP ONE (12:00)
[2018-05-30] MEDS ORDERED: ONDANSETRON 4 MG/2 ML VIAL IVP ONE (12:00)
[2018-05-30] MEDS ORDERED: PROPOFOL 200 MG/20 ML VIAL IVP ONE (12:00)
[2018-05-30] MEDS ORDERED: KETOROLAC 30 MG/ML VIAL IVP ONE (12:00)
[2018-05-30] MEDS ORDERED: fentaNYL 100 MCG/2 ML VIAL IVP ONE (12:00)
[2018-05-30] MEDS ORDERED: MIDAZOLAM 2 MG/2 ML VIAL IVP ONE (12:00)
[2018-05-30] MEDS ORDERED: LIDOCAINE-MPF 2% 5 ML VIAL IM ONE (12:00)
[2018-05-30] MEDS ORDERED: HYDROmorphone 0.5 MG/0.5 ML SYRINGE IVP PRN (12:06)
[2018-05-30] MEDS ORDERED: oxyCODONE 5 MG TABLET PO PRN (12:06)
[2018-05-30] MEDS ORDERED: LORazepam 2 MG/ML VIAL IVP PRN (12:06)
[2018-05-30] MEDS ORDERED: ONDANSETRON 4 MG/2 ML VIAL IVP PRN (12:06)
[2018-05-30] MEDS ORDERED: HYDROmorphone 1 MG/ML CARPUJECT ONE (12:08)
--- NOTE | 2018-05-30 12:10 | OPERATIVE REPORT ---
Operative Report - General Procedure Date: 05/30/18 Planned Procedure: Hysterscopy with D&C Pre-Op Diagnosis: Menometrorrhagia suspect adenomyosis Procedure Performed: Hysterscopy with D&C Post Op Diagnosis: Same - Procedure Note Primary Surgeon: Yobany Horner MD Anesthesia Provider: Chavo Hunter CRNA Anesthesia Technique: General LMA Pathology: ECC, EMC IV Fluids (mL): 1,000 Estimated Blood Loss (mL): 50 Indications: Menometrorrhagia Findings: exuberant endometrial growth, uterus sounded to 9 cm - Other Other Information/Narrative: # [id number]
[2018-05-30] MEDS ORDERED: ONDANSETRON 4 MG/2 ML VIAL ONE (13:10)
[2018-05-30 14:01] VITALS: BP 134/86
--- NOTE | 2018-05-30 15:41 | OPERATIVE REPORT ---
DATE OF SERVICE: 05/30/2018 Physician: Yobany Horner MD PREOPERATIVE DIAGNOSIS: Menometrorrhagia, suspect adenomyosis. POSTOPERATIVE DIAGNOSIS: Menometrorrhagia, suspect adenomyosis. PROCEDURE PERFORMED: Hysteroscopy with dilation and curettage. SURGEON: Yobany Horner MD ANESTHESIA: General via LMA and paracervical block. Lynda Hunter CRNA ESTIMATED BLOOD LOSS: 50 mL INTRAVENOUS FLUID: 1000 mL URINE: Patient voided spontaneously. HYSTEROSCOPIC FLUID USED: 1600 mL FINDINGS: The uterus resided in the pelvis. The cervix was somewhat patulous and was already dilate d up to probably 7-9 mm in diameter. Upon entering the hysteroscope, there was evidence of exuberant endometrial growth. The cornua both appeared to be free of disease. Uterus sounded to 9 cm. DESCRIPTION OF PROCEDURE: Following adequate general anesthesia, patient was placed in dorsal lithot tasha position in Crow stirrups. At this point, pelvic examination under anesthesia was performed. T he uterus was palpated anterior. The adnexa were not palpably enlarged. She was then prepped and dr aped in the usual fashion. Following a timeout, which identified concerns, the procedure commenced. The cervix was noted to already be dilated up to roughly 9 mm. Following a paracervical block with 0.25% Marcaine with epinephrine, 5 mL in each uterosacral ligament, the hysteroscope was introduced i nto the endometrial cavity. There was difficulty with flow coming back around the scope, so an addit ional single-tooth tenaculum was used to clamp the cervix. The entire endometrial cavity was visuali zed. There was evidence of exuberant growth of the endometrial tissue. The cornua were visualized a t this time. At this point, the endocervical curettage was commenced and, following this, an endomet rial curettage was commenced and a large amount of endometrial tissue was removed. The hysteroscope was then introduced and, utilizing the large MyoSure, the endometrial cavity was shaved down as much as possible. The apex of the uterus was unable to be shaved secondary to it was just off the end of the MyoSure. During this time, I was very carefully keeping track of the normal saline, which was us ed as a visualizing medium. At this point, following shaving as much of the endometrial tissue from the lining of the uterus, the procedure was terminated. The scope was removed. There was some bleed ing from the cervix, which resolved with time. The single tenaculums were also removed. Patient ana erated the procedure well and was taken to Recovery in stable condition. Sponge and needle counts we re correct. TD: 05/30/2018 12:24
== END 2018-05-30 09:34 | disposition home or self-care (01) ==
LOC: SDS 09:33
PROVIDERS: ATTEND Obstetrics & Gynecology
PROC: 0UDB8ZZ Extraction of Endometrium, Via Natural or Artificial Opening Endoscopic (ICD-10-PCS; principal; 2018-05-30 10:45)
DX: N93.9 Abnormal uterine and vaginal bleeding, unspecified (principal); N94.6 Dysmenorrhea, unspecified
CPT/HCPCS: 58558; 81025; J0131; J1170; J7120

== ENCOUNTER 2020-06-09 07:00 | Outpatient (CLI) | payer BC, OTHER ==
[2020-06-09 23:29] LABS: CHLAMYDIA TRACHOMATIS DNA NEGATIVE (NEGATIVE); NEISSERIA GONORRHOEAE DNA NEGATIVE (NEGATIVE); TRICHOMONAS VAGINALIS DNA NEGATIVE (NEGATIVE)
== END 2020-06-09 23:59 | disposition home or self-care (01) ==
LOC: LAB 07:00
PROVIDERS: ATTEND Obstetrics & Gynecology
DX: Z11.3 Encounter for screening for infections with a predominantly sexual mode of transmission (principal)
CPT/HCPCS: 87491; 87591; 87661

== ENCOUNTER 2020-11-09 10:00 | Outpatient (CLI) | payer BC ==
[2020-11-09 23:44] LABS: BACTERIAL VAGINOSIS DNA POSITIVE (NEGATIVE); CANDIDA GLABRATA DNA NEGATIVE (NEGATIVE); CANDIDA GROUP DNA POSITIVE (NEGATIVE); CANDIDA KRUSEI DNA NEGATIVE (NEGATIVE); TRICHOMONAS VAGINALIS DNA NEGATIVE (NEGATIVE)
== END 2020-11-09 23:59 | disposition home or self-care (01) ==
LOC: LAB.N 10:00
PROVIDERS: ATTEND Physician Assistant Medical
DX: N89.8 Other specified noninflammatory disorders of vagina (principal)
CPT/HCPCS: 87661; 87801

== ENCOUNTER 2021-03-30 18:47 | Outpatient (CLI) | payer OTHER ==
--- NOTE | 2021-03-31 09:05 | Ultrasound Report ---
PROCEDURE: Pelvic w/Transvaginal INDICATIONS: DYSFUNCTIONAL UTERINE BLEEDING TECHNIQUE: Real-time scanning was performed of the pelvic organs, with image documentation. Additional endovagi nal scanning was necessary due to incomplete visualization of the adnexal and endometrial structures by transabdominal scanning. COMPARISON: Pelvic ultrasound 03/26/2018. CT abdomen and pelvis 04/25/2017. FINDINGS: Trace free fluid near the right adnexa. Uterus: Uterus is anteverted and normal in size at 9 x 6.3 x 4.3 cm. Volume of 128 cc. Myometrial ec hotexture is heterogeneous. The endometrium measures 7 mm in combined thickness. IUD centered in th e endometrial cavity. Small nabothian cysts. Ovaries: Right ovary measures 5.1 x 4.9 x 3.5 cm, volume of 45 cc. -Large anechoic cyst measuring 4.6 cm. Left ovary measures 5.5 x 5.3 x 4.8 cm, volume of 72 cc. -3 large simple cyst measuring 3.8 cm; 3 cm; 3.2 cm. Alternatively, this could represent a large cyst with thin septation. IMPRESSION: 1. IUD is centered in the endometrial cavity. The endometrium measures approximately 7 mm. 2. Large anechoic right ovarian cyst measuring 4.6 cm. 3. Large left anechoic ovarian cysts or mildly complex ovarian cyst with thin septation. Recommend follow-up pelvic ultrasound in 6-12 weeks for further evaluation. Reviewed by: Rohan Loo MD on 03/31/2021 9:04 AM PST Approved by: Rohan Loo MD on 03/31/2021 9:04 AM PST Station ID: [id number]
== END 2021-03-30 18:48 | disposition home or self-care (01) ==
LOC: DI 18:47
PROVIDERS: ATTEND Family Medicine
DX: N92.4 Excessive bleeding in the premenopausal period (principal); Z97.5 Presence of (intrauterine) contraceptive device; N83.202 Unspecified ovarian cyst, left side; N83.201 Unspecified ovarian cyst, right side

== ENCOUNTER 2021-06-14 09:22 | Outpatient (CLI) | payer OTHER ==
[2021-06-14 12:18] LABS: BASOPHILS % (AUTO) 0.4 %; EOSINOPHILS # (AUTO) 0.3 10^3/uL (0.0-0.7); EOSINOPHILS % (AUTO) 3.2 %; HCT - HEMATOCRIT 39.1 % (37.0-47.0); HGB - HEMOGLOBIN 12.3 g/dL (12.0-16.0); LYMPHOCYTES # (AUTO) 2.9 10^3/uL (1.5-3.5); LYMPHOCYTES % (AUTO) 27.5 %; MEAN CORPUSCULAR HEMOGLOBIN 28.9 pg (27.0-31.0); MEAN CORPUSCULAR HGB CONC 31.5 g/dL (32.0-36.0); MEAN PLATELET VOLUME 10.3 fL (7.9-10.8); MONOCYTES # (AUTO) 0.7 10^3/uL (0.0-1.0); MONOCYTES % (AUTO) 6.6 %; NEUTROPHILS # (AUTO) 6.4 10^3/uL (1.5-6.6); NEUTROPHILS % (AUTO) 61.8 %; PLT - PLATELET COUNT 219 10^3/uL (130-450); RED BLOOD COUNT 4.25 10^6/uL (4.20-5.40); RED CELL DISTRIBUTION WIDTH 13.5 % (12.0-15.0); WHITE BLOOD COUNT 10.4 x10^3/uL (4.8-10.8)
[2021-06-14 13:28] LABS: HCG UR QUAL NEGATIVE
== END 2021-06-14 09:23 | disposition home or self-care (01) ==
LOC: LAB.N 09:22
PROVIDERS: ATTEND Obstetrics & Gynecology
DX: Z01.812 Encounter for preprocedural laboratory examination (principal); N92.4 Excessive bleeding in the premenopausal period
CPT/HCPCS: 36415; 81025; 85025

== ENCOUNTER 2021-06-15 08:45 | Day surgery (SDC) | payer OTHER ==
--- NOTE | 2021-06-15 07:37 | HISTORY & PHYSICAL EXAMINATION ---
History and Physical - History and Physical HPI: 35-year-old presenting today for abnormal uterine bleeding. She has heavy, frequent bleeding, sometimes every 2 weeks. IUD has not improved her symptoms sufficiently. She had a TVUS that showed a uterus measuring 9 x 6.3 x 4.3. She wants an endometrial ablation to improve her bleeding. All other symptoms reviewed and were negative except per HPI. 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 Social alcohol use Family History Father: Hypertension, cirrhosis Allergies Succinylcholine Erythromycin Medications Lexapro 15 mg daily Hydrochlorothizide 25mg daily Propranolol 10 mg PRN Lamictal 50 mg daily trazadone 50 mg nightly Multivitamin Gabapentin 600mg PRN Omeprazole 20 mg daily Physical exam: Temp Pulse Resp BP Pulse Ox 97.5 F L 61 14 116/85 H 100 06/15/21 09:03 06/15/21 09:03 06/15/21 09:03 06/15/21 09:03 06/15/21 09:03 General: Alert, oriented, no acute distress Head: Normal cephalic atraumatic Eyes: PERRLA, extraocular motions intact. Respiratory: Normal rate of respiration. No accessory muscle use, normal respiratory effort. Cardiovascular: Regular rate and rhythm Abdomen: Nontender, nondistended Extremities: Normal range of motion Neuro: Oriented x3. Normal movements Psych: Appropriate mood and affect. Normal judgment and insight Plan 35-year-old with Abnormal Uterine Bleeding 1. Abnormal uterine bleeding Plan for hysteroscopy, D&C, endometrial ablation, and IUD removal. Discussed possibility of malignancy found on endmetrial sampling and that if we found cells, she could require another surgery. Bleeding profile reviewed with expectations. Risk of perforation, bleeding, damage to other organs reviewed. Discussed risk of thinned myometrium due to previous hysteroscopy D&C, there could be a risk of thinning from this although less likely. Discussed in the event of perforation, we would have to abandon the procedure as we could not visualize the uterus. Patient agrees and desires to proceed with surgery.
[2021-06-15] MEDS ORDERED: LACTATED RINGERS 1,000 ML IV ONE ×2 (09:02→11:49)
--- NOTE | 2021-06-15 09:32 | ANESTHESIA ---
Pre-Anesthesia VS, & Labs - Diagnosis abnormal uterine bleeding - Procedure myosure hysteroscopy, possible D&C Vital Signs: Temp Pulse Resp BP Pulse Ox 36.4 C L 61 14 116/85 H 100 06/15/21 09:03 06/15/21 09:03 06/15/21 09:03 06/15/21 09:03 06/15/21 09:03 Height: 5 ft 3 in Weight (kg): 89.81 kg Body Mass Index: 35.0 BMI Classification: Obese - NPO >8 hours - Is Patient ?: No - Lab Results Lab results reviewed: Yes Home Medications and Allergies Home Medications: Ambulatory Orders Escitalopram [Lexapro] 10 mg PO DAILY 06/03/21 traZODone [Desyrel] 50 mg PO HS 06/03/21 Melatonin 10 mg PO QPM PRN 04/25/17 hydroCHLOROthiazide [Hydrochlorothiazide] 25 mg PO DAILY 05/17/18 Escitalopram [Lexapro] 10 mg PO DAILY 06/03/21 traZODone [Desyrel] 50 mg PO HS 06/03/21 Allergies/Adverse Reactions: Allergies Allergy/AdvReac Type Severity Reaction Status Date / Time succinylcholine Allergy Severe Anaphylaxis Verified 06/03/21 10:21 erythromycin base AdvReac Nausea Verified 06/15/21 09:01 [From Erythrocin] Anes History & Medical History - Anesthetic History Anesthesia Complications: reports: No previous complications Family history of Anesthesia Complications: Denies Family history of Malignant Hyperthermia: Denies - Medical History Cardiovascular: reports: Hypertension, High cholesterol Pulmonary: reports: Asthma Gastrointestinal: reports: None Urinary: reports: None Musculoskeletal: Endocrine/Autoimmune: reports: None Skin: reports: None, Other Smoking Status: Never smoker - Surgical History General: reports: Appendectomy Gynecologic: reports: section, Other Orthopedic: reports: ACL reconstruction Exam General: Alert, Oriented x3, Cooperative, No acute distress Dental: WNL Mouth Openin Fingerbreadth Neck Mobility: Normal Mallampati classification: II Plan Anesthesia Type: General Consent for Procedure(s) Verified and Reviewed: Yes Code Status: Attempt Resuscitation ASA classification: 2-Mild systemic disease Is this case an emergency?: No
[2021-06-15] MEDS ORDERED: HYDROmorphone 0.5 MG/0.5 ML SYRINGE IVP PRN (10:28)
[2021-06-15] MEDS ORDERED: ATROPINE ABBOJECT 1 MG/10 ML SYRINGE IVP PRN (10:28)
[2021-06-15] MEDS ORDERED: fentaNYL 100 MCG/2 ML VIAL IVP PRN (10:28)
[2021-06-15] MEDS ORDERED: ONDANSETRON 4 MG/2 ML VIAL IVP PRN (10:28)
[2021-06-15] MEDS ORDERED: NALOXONE 0.4 MG/ML VIAL IVP PRN (10:28)
[2021-06-15] MEDS ORDERED: ePHEDrine 50 MG/ML VIAL IVP PRN (10:28)
[2021-06-15] MEDS ORDERED: MORPHINE 2 MG/ML CARPUJECT IVP PRN (10:28)
[2021-06-15] MEDS ORDERED: METOCLOPRAMIDE 10 MG/2 ML VIAL IVP PRN (10:28)
[2021-06-15] MEDS ORDERED: BUPIVACAINE 0.25% PF 10 ML VIAL ONE (10:28)
[2021-06-15] MEDS ORDERED: LIDOCAINE 2%-EPI 1:100000 20 ML MDV ONE (10:28)
[2021-06-15] MEDS ORDERED: MIDAZOLAM 2 MG/2 ML VIAL ONE (10:39)
[2021-06-15] MEDS ORDERED: LACTATED RINGERS 1,000 ML IV SCH (11:00)
[2021-06-15] MEDS ORDERED: KETOROLAC 30 MG/ML VIAL ONE (11:08)
[2021-06-15] MEDS ORDERED: ONDANSETRON 4 MG/2 ML VIAL ONE (11:08)
[2021-06-15] MEDS ORDERED: DEXAMETHASONE 4 MG/ML VIAL ONE (11:08)
[2021-06-15] MEDS ORDERED: BUPIVACAINE 0.25% PF 30 ML VIAL SUBQ ONE ×2 (11:26)
[2021-06-15] MEDS ORDERED: LIDOCAINE MPF 2%-EPI 1:200000 20 ML VIAL SUBQ ONE ×2 (11:26)
[2021-06-15] MEDS ORDERED: ACETAMINOPHEN 1,000 MG/100 ML 100 ML IV ONE (11:28)
--- NOTE | 2021-06-15 11:50 | OPERATIVE REPORT ---
Operative Report - General Planned Procedure: Hysteroscopy, D&C, IUD removal, endometrial ablation Pre-Op Diagnosis: Abnormal uterine bleeding Procedure Performed: Endometrial ablation, hysteroscopy, D&C, IUD removal Post Op Diagnosis: Abnormal uterine bleeding - Procedure Note Primary Surgeon: Victoriano Escobar MD Anesthesia Provider: Roseanne Wilson CRNA Anesthesia Technique: General ET tube Pathology: Endometrial curettings IV Fluids (mL): 800 Estimated Blood Loss (mL): 5 Urine Output (mL): 50 Complications: None - Other Other Information/Narrative: Patient was taken to the procedure room and placed in dorsal lithotomy position. [place] speculum was palced in the vagina and the cervix was visualized and cleansed with betadine. The anterior lip the cervix was grasped with a single- tooth tenaculum. A cervical block was placed using 2% lidocaine with epinephrine and 0.25% Marcaine. The cervix was dilated and did not require dilation. IUD was easily removed. Hysteroscope was then used to hydrodilate using normal saline distention media. Hysteroscope was advanced without difficulty using hydrodistention. Upon entry into the internal cervical os there was noted to be proliferative endometrium within the uterus. Bilateral tubal ostia were noted. Hysteroscope was then removed. Sharp uterine curette was then performed with uterine curettings collected on a Telfa and sent to pathology. Attention was then turned to the ablation portion of the procedure. The NovaSure device was removed from the packaging and tested for adequacy. The uterus was sounded to 9 cm with a uterine length of 3 cm. Total cavity length of 6 cm. The device is inserted to the fundus and slowly closed. Uterine width was 2.5 cm. Set a power of 83 W, and after sealing, the device was activated for 1 minute 25 seconds. Hysteroscopy after the procedure noted distracted the endometrium. The hysteroscope was removed. Tenaculum was then removed from the cervix noted to be hemostatic. All instruments removed from the vagina. The patient was taken to the PACU in stable condition. .
[2021-06-15 12:37] VITALS: BP 146/86
--- NOTE | 2021-06-15 13:24 | ANESTHESIA POST OP EVALUATION ---
Anesthesia Post Eval - Post Anesthesia Eval Vitals: Last Vital Signs Temp 36.7 C 06/15/21 11:49 Pulse 80 06/15/21 12:37 Resp 15 06/15/21 12:37 BP 146/86 H 06/15/21 12:37 Pulse Ox 100 06/15/21 12:37 CV Function Including HR & BP: Stable Pain Control: Satisfactory Nausea & Vomiting: Negative Mental Status: Baseline Respiratory Status: Airway Patent Hydration Status: Satisfactory Anesthesia Complications: None
== END 2021-06-15 08:46 | disposition home or self-care (01) ==
LOC: SDS 08:45
PROVIDERS: ATTEND Obstetrics & Gynecology
PROC: 0UDB7ZZ Extraction of Endometrium, Via Natural or Artificial Opening (ICD-10-PCS; 2021-06-15)
PROC: 0UPD7HZ Removal of Contraceptive Device from Uterus and Cervix, Via Natural or Artificial Opening (ICD-10-PCS; 2021-06-15)
PROC: 0U5B8ZZ Destruction of Endometrium, Via Natural or Artificial Opening Endoscopic (ICD-10-PCS; principal; 2021-06-15 10:30)
DX: N93.9 Abnormal uterine and vaginal bleeding, unspecified (principal); E66.9 Obesity, unspecified; Z68.35 Body mass index [BMI] 35.0-35.9, adult
CPT/HCPCS: 58301; 58563; J0131; J7120

== ENCOUNTER 2021-06-29 10:22 | Outpatient (CLI) | payer OTHER ==
--- NOTE | 2021-06-29 16:40 | Ultrasound Report ---
PROCEDURE: Pelvic w/Transvaginal INDICATIONS: OVARIAN CYSTS TECHNIQUE: Real-time scanning was performed of the pelvic organs, with image documentation. Additional endovagi nal scanning was necessary due to incomplete visualization of the adnexal and endometrial structures by transabdominal scanning. COMPARISON: CT abdomen and pelvis, 04/28/2017. FINDINGS: Limited scanning through the kidneys shows no hydronephrosis. Uterus: Uterus is anteverted measuring 9.1 x 4.5 x 6.4 cm. There is heterogeneous echotexture in the junctional zone. The endometrium measures 6.5 mm in combined thickness. There is a small amount of fluid in the endocervical canal. Echogenic foci are seen within the uterine cavity with posterior sha dowing, a secondary to calcification. Ovaries: Right ovary measures 4.6 x 3.0 x 4.7 cm with the estimated volume of 33.8 mL. Left ovary me asures 3.7 x 2.8 x 2.9 cm with an estimated volume of 15.2 mL. There is a 4.3 x 2.5 x 3.8 cm (cyst in right ovary. A 1.5 x 1.2 x 1.4 cm mildly complex cyst is noted in the left ovary. Other: No free pelvic fluid. IMPRESSION: 1. Image with normal in thickness. There is small amount of fluid in the endocervical canal. Calcific foci are seen within the uterine cavity suggesting synechia. 2. Heterogeneous junctional zone. The finding is suspicious for adenomyosis. 3. There is a complex cyst in the left ovary, most likely a hematologic cyst. [facility] 4. A simple cyst is noted in right ovary. Reviewed by: Liz Olivo MD on 06/29/2021 4:39 PM PDT Approved by: Liz Olivo MD on 06/29/2021 4:39 PM PDT Station ID: [id number]
== END 2021-06-29 10:23 | disposition home or self-care (01) ==
LOC: DI 10:22
PROVIDERS: ATTEND Obstetrics & Gynecology
DX: R93.89 Abnormal findings on diagnostic imaging of other specified body structures (principal); N83.292 Other ovarian cyst, left side; N83.291 Other ovarian cyst, right side

== ENCOUNTER 2022-08-24 16:56 | Emergency (ER) | payer OTHER ==
--- NOTE | 2022-08-24 17:18 | ED Physician Documentation ---
History of Present Illness - Stated complaint Stated Complaint: AND PAIN - Chief complaint Chief Complaint: Abd Pain - Additonal information Additional information: 36-year-old female presents emergency department for evaluation of 2 to 3 days acutely worsening left lower pelvic pain. She does have a history of ovarian cysts and wonders if this is one of them. She has been taking Tylenol and Motrin without resolution of symptoms. No fevers. Some nausea but no vomiting. No urinary symptoms. She is reporting normal bowel movements without diarrhea, melena or hematochezia. She does have a history of endometrial ablation as well as multiple C-sections. She appears remarkably well. No fever, tachycardia or hypotension Review of Systems Constitutional: reports: Reviewed and negative GI: reports: Nausea, Reviewed and negative. 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 TRANSPLANTER: Other ( section 2 as well as tubal ligation) : None HEENT: None Psych: Depression, Anxiety, Panic attacks, Post traumatic stress disorder Musculoskeletal:  Derm: None, Other - Past Surgical History Past Surgical History: Yes General: Appendectomy Ortho: ACL reconstruction /ORCHID TRANSPLANTER: section, Other - Present Medications Home Medications: Ambulatory Orders Medication Instructions Recorded Confirmed Escitalopram [Lexapro] 10 mg PO DAILY 06/03/21 08/24/22 traZODone [Desyrel] 50 mg PO HS 06/03/21 08/24/22 Lisinopril [Zestril] 10 mg PO DAILY 08/24/22 08/24/22 Methylphenidate HCl [Metadate ER] 20 mg PO DAILY PRN 08/24/22 08/24/22 - Allergies Allergies/Adverse Reactions: Allergies Allergy/AdvReac Type Severity Reaction Status Date / Time succinylcholine Allergy Severe Anaphylaxis Verified 08/24/22 17:04 erythromycin base AdvReac Nausea Verified 08/24/22 17:04 [From Erythrocin] - Social History Does the pt smoke?: No Smoking Status: Never smoker PD ED PE NORMAL - General General: Alert and oriented X 3, No acute distress - HEENT HEENT: PERRL - Cardiac Cardiac: RRR, No murmur - Respiratory Respiratory: Clear bilaterally - Abdomen Abdomen: Normal bowel sounds, Soft. No: Non tender (Very focal tenderness in the left lower pelvic region. No abdominal flank or CVA tenderness elicited. No guarding or rebound. Negative Colbert's. Negative McBurney's.) - Back Back: No CVA TTP - Derm Derm: Normal color, Warm and dry, No rash - Extremities Extremities: No deformity - Neuro Neuro: Alert and oriented X 3, p d driver 2-12 intact Eye Opening: Spontaneous Motor: Obeys Commands Verbal: Oriented GCS Score: 15 Results - Vitals Vitals: Vital Signs - 24 hr 08/24/22 08/24/22 08/24/22 17:01 17:07 17:21 Temperature 36.6 C Heart Rate 79 Respiratory 16 17 16 Rate Blood Pressure 139/106 H O2 Saturation 98 08/24/22 08/24/22 08/24/22 18:17 19:55 20:10 Temperature Heart Rate 65 69 Respiratory 17 17 19 Rate Blood Pressure 130/92 H O2 Saturation 99 97 Oxygen O2 Source Room air - Labs Labs: Laboratory Tests 08/24/22 08/24/22 08/24/22 17:15 17:15 17:22 WBC 8.0 RBC 4.36 Hgb 12.2 Hct 38.5 MCV 88.3 MCH 28.0 MCHC 31.7 L RDW 13.2 Plt Count 271 MPV 9.6 Neut # (Auto) 5.0 Lymph # (Auto) 2.3 [place] # (Auto) 0.5 Eos # (Auto) 0.2 Baso # (Auto) 0.1 Absolute Nucleated RBC 0.00 Nucleated RBC % 0.0 Sodium Potassium Chloride Carbon Dioxide Anion Gap BUN Creatinine Estimated GFR (MDRD) Glucose Calcium Total Bilirubin AST ALT Alkaline Phosphatase Total Protein Albumin Globulin Albumin/Globulin Ratio Lipase Urine Color YELLOW Urine Clarity CLEAR Urine pH 6.0 Ur Specific [place] 1.025 Urine Protein NEGATIVE Urine Glucose (UA) NEGATIVE Urine Ketones NEGATIVE Urine Occult Blood NEGATIVE Urine Nitrite NEGATIVE Urine Bilirubin NEGATIVE Urine Urobilinogen 0.2 (NORMAL) Ur Leukocyte Esterase NEGATIVE Ur Microscopic Review NOT INDICATED Urine Culture Comments NOT INDICATED Urine HCG, Qual NEGATIVE 08/24/22 17:22 WBC RBC Hgb Hct MCV MCH MCHC RDW Plt Count MPV Neut # (Auto) Lymph # (Auto) [place] # (Auto) Eos # (Auto) Baso # (Auto) Absolute Nucleated RBC Nucleated RBC % Sodium 138 Potassium 4.0 Chloride 109 Carbon Dioxide 25 Anion Gap 4.0 L BUN 14 Creatinine 0.8 Estimated GFR (MDRD) 82 L Glucose 89 Calcium 8.7 Total Bilirubin 0.4 AST 67 H ALT 25 Alkaline Phosphatase 45 Total Protein 7.4 Albumin 4.0 Globulin 3.4 Albumin/Globulin Ratio 1.2 Lipase 37 Urine Color Urine Clarity Urine pH Ur Specific [place] Urine Protein Urine Glucose (UA) Urine Ketones Urine Occult Blood Urine Nitrite Urine Bilirubin Urine Urobilinogen Ur Leukocyte Esterase Ur Microscopic Review Urine Culture Comments Urine HCG, Qual - Rads (name of study) pelvic US Relevant Findings:: Other (Per fibre technologist no ovarian cyst or torsion. There is some endometrial debris and an arcuate uterus. There is some fluid in the posterior cul-de-sac.) PD Medical Decision Making - ED course Complexity details: reviewed results, re-evaluated patient, considered differential, d/w patient, d/w talent development consultant (Shawn) ED course: Very well-appearing 36-year-old female presents emergency department for evaluation of 2 to 3 days focal pain in the left lower quadrant of the abdomen. She does have a history of ovarian cyst. Also has a history of an endometrial abrasion. Was previously seen by Dr. Escobar but now followed by Dr. Katz in [place]. On exam she had very focal left pelvic pain Without guarding or rebound. She denies any vaginal discharge. I did obtain CBC, electrolytes and urinalysis. She is not . CBC and electrolytes were unremarkable without any worrisome findings. Subsequently I did do a pelvic ultrasound. Per the fibre technologist she has an arcuate uterus. There is some fluid in the posterior cul-de-sac but no evidence of ovarian cyst or torsion. There is some endometrial debris. Unclear what this finding could mean I did discuss the case with Dr. Victoriano Escobar, OB who was on-call at that time. He was able to review the images. He did wonder if perhaps an ovarian cyst had ruptured as a cause of the fluid in the posterior cul-de-sac but the debris could be related to scar tissue and previous ablation. Given that the patient has no fevers or leukocytosis no acute intervention is warranted at this time. Clinically the patient does not have a history consistent with PID. There is no urinary tract infection. No leukocytosis vomiting or pain on the right side of the abdomen I have low suspicion for occult appy I did give the patient 30 mg of Toradol IV and on evaluation she is now pain- free. She feels comfortable with discharge home to follow-up with her PCP. If the symptoms return, she develops fevers or uncontrolled vomiting she will return to the ER. Departure - Departure Disposition: 01 Home, Self Care Clinical Impression: Lower abdominal pain Condition: Stable Follow-Up: DARA CONNELLY, [Primary Care Provider] - Comments: You are seen today in the emergency department because you have been having some pain in the left lower pelvic region. Your labs today were essentially normal. Your urine showed no signs of infection. You are not . We did do an ultrasound that shows some debris within your uterus. Its not clear what this is as it may be related to your previous ablation. There were no findings to suggest ovarian cyst or torsion. There was some fluid in your lower posterior pelvic cul-de-sac. This can be seen if you had an ovarian cyst that ruptured. I am I did briefly discuss your case with Dr. Victoriano Escobar. At this time he feels that you are safe for discharge home. He would recommend close follow-up with Dr. Katz. If your symptoms return, you develop any fevers, have uncontrolled vomiting or return of severe pain then please return immediately to the ER. You are given a dose of Toradol today which markedly improved your symptoms. I recommend that you take ibuprofen 600 mg with food for abdominal discomfort or alternate with 500 mg of Tylenol.
[2022-08-24] MEDS ORDERED: KETOROLAC 30 MG/ML VIAL IM STA (17:25)
[2022-08-24 17:26] LABS: BASOPHILS # (AUTO) 0.1 10^3/uL (0.0-0.1); BASOPHILS % (AUTO) 0.6 %; EOSINOPHILS # (AUTO) 0.2 10^3/uL (0.0-0.7); EOSINOPHILS % (AUTO) 2.2 %; HCT - HEMATOCRIT 38.5 % (37.0-47.0); HGB - HEMOGLOBIN 12.2 g/dL (12.0-16.0); LYMPHOCYTES # (AUTO) 2.3 10^3/uL (1.5-3.5); LYMPHOCYTES % (AUTO) 28.4 %; MEAN CORPUSCULAR HGB CONC 31.7 g/dL (32.0-36.0); MEAN CORPUSCULAR VOLUME 88.3 fL (81.0-99.0); MEAN PLATELET VOLUME 9.6 fL (7.9-10.8); MONOCYTES # (AUTO) 0.5 10^3/uL (0.0-1.0); MONOCYTES % (AUTO) 6.7 %; NEUTROPHILS % (AUTO) 61.9 %; PLT - PLATELET COUNT 271 10^3/uL (130-450); RED BLOOD COUNT 4.36 10^6/uL (4.20-5.40); RED CELL DISTRIBUTION WIDTH 13.2 % (12.0-15.0)
[2022-08-24 17:29] LABS: BILIRUBIN,URINE NEGATIVE (NEGATIVE); CLARITY,URINE CLEAR (CLEAR); GLUCOSE, URINE (UA) NEGATIVE (NEGATIVE); KETONES,URINE (UA) NEGATIVE (NEGATIVE); LEUKOCYTE ESTERASE, URINE NEGATIVE (NEGATIVE); NITRITE,URINE NEGATIVE (NEGATIVE); OCCULT BLOOD,URINE NEGATIVE (NEGATIVE); PROTEIN,URINE NEGATIVE (NEGATIVE); UROBILINOGEN,URINE 0.2 (NORMAL) E.U./dL (NORMAL)
[2022-08-24 17:30] LABS: HCG UR QUAL NEGATIVE
[2022-08-24 17:39] LABS: ALBUMIN/GLOBULIN RATIO 1.2 (1.0-2.2); BILIRUBIN,TOTAL 0.4 mg/dL (0.2-1.0); CALCIUM 8.7 mg/dL (8.5-10.3); CREATININE 0.8 mg/dL (0.4-1.0); TOTAL PROTEIN 7.4 g/dL (6.7-8.2)
--- NOTE | 2022-08-24 20:46 | Ultrasound Report ---
PROCEDURE: Pelvic w/Transvag+Doppler Comp INDICATIONS: pelvic pain, L TECHNIQUE: Real-time scanning was performed of the pelvic organs, with image documentation. Additional endovagi nal scanning was necessary due to incomplete visualization of the adnexal and endometrial structures by transabdominal scanning. Doppler interrogation was performed of the ovaries bilaterally. COMPARISON: None. FINDINGS: Uterus: Uterus is anteverted and measures 6 x 6 x 5.5 cm. There is suggestion of an arcuate or septa te uterus, with evaluation limited on the current study. Endometrium measures up to 1.3 cm with endom etrial fluid and debris in the bilateral horns. No definite internal vascularity on color Doppler int errogation. Ovaries: The right ovary measures 1.9 x 1.9 x 2.4 cm, with a calculated ovarian volume of 4.3 cc. T he left ovary measures 2.7 x 2.1 x 2.3 cm, with a calculated ovarian volume of 6.8 cc. No adnexal mas ses. There is a cyst within the left ovary measuring up to 1.2 cm compatible with a dominant follicle . There is patent arterial and venous flow demonstrated within the ovaries. Other: There is a moderate amount of free fluid in the pelvis predominantly within the cul-de-sac. IMPRESSION: 1. Suspected arcuate or septate uterus with mild fluid distention of the endometrium and internal mirella ling defects suggestive of debris. Consider further evaluation with pelvic MRI. 2. No adnexal masses. No evidence of ovarian torsion. Reviewed by: Tyree Chambers MD on 08/24/2022 8:45 PM PDT Approved by: Tyree Chambers MD on 08/24/2022 8:45 PM PDT Station ID: [id number]
[2022-08-24 20:54] VITALS: BP 124/84
== END 2022-08-24 20:52 | disposition home or self-care (01) ==
LOC: ED 16:56
DX: R10.30 Lower abdominal pain, unspecified (principal)
CPT/HCPCS: 36415; 80053; 81001; 81003; 81025; 83690; 85025; 87086; 93975; 96372; 99284